=== PATIENT | female | born 1985 | race Caucasian/White ===

== ENCOUNTER 2021-12-20 14:09 | Emergency (ER) | payer MEDICAID ==
[~2021-12-20] VITALS: Ht 170.2 cm; Wt 100.0 kg
[2021-12-20 14:19] VITALS: BP 128/82
[2021-12-20] MEDS ORDERED: CEPH500C2 MT (16:33)
[2021-12-20] MEDS ORDERED: TRIA15CR61 TP (16:33)
[2021-12-20] MEDS ORDERED: LORA10CA MT (16:33)
== END 2021-12-20 16:54 | disposition home or self-care (01) ==
LOC: ER 14:09
DX: S70.361A Insect bite (nonvenomous), right thigh, initial encounter (principal); L03.115 Cellulitis of right lower limb; Z98.890 Other specified postprocedural states; Z97.5 Presence of (intrauterine) contraceptive device; W57.XXXA Bitten or stung by nonvenomous insect and other nonvenomous arthropods, initial encounter; Y93.89 Activity, other specified; Y92.018 Other place in single-family (private) house as the place of occurrence of the external cause
CPT/HCPCS: 99281

== ENCOUNTER 2022-07-26 20:28 | Emergency (ER) | payer MEDICAID ==
[~2022-07-26] VITALS: Ht 170.2 cm; Wt 220.0 kg
[~2022-07-26 20:28] MED LIST: CEPH500C2 MT; LORA10CA MT; TRIA15CR61 TP
[2022-07-26] MEDS ORDERED: CIPR-264 MT (23:22)
[2022-07-27] MEDS ORDERED: KETOROLAC 60MG/2ML VIAL IM ONE
[2022-07-27 00:10] VITALS: BP 137/85
== END 2022-07-27 00:11 | disposition home or self-care (01) ==
LOC: ER 20:28
DX: H61.002 Unspecified perichondritis of left external ear (principal); Z98.890 Other specified postprocedural states
CPT/HCPCS: 81025; 96372; 99283; J1885; Z7610

== ENCOUNTER 2022-12-03 10:01 | Emergency (ER) | payer MEDICAID ==
[~2022-12-03] VITALS: Ht 170.2 cm; Wt 98.2 kg
[~2022-12-03 10:01] MED LIST changes: +CIPR-264 MT
[2022-12-03 10:20] VITALS: O2SAT 98
[2022-12-03] MEDS ORDERED: AMOX1TAB16 MT (11:12)
[2022-12-03] MEDS ORDERED: KETOROLAC 30MG/ML VIAL IM ONE (11:30)
[2022-12-03 11:36] VITALS: BP 145/75; PULSE 101; RESP 18; TEMP 98.7
== END 2022-12-03 11:39 | disposition home or self-care (01) ==
LOC: ER 10:01
DX: K08.89 Other specified disorders of teeth and supporting structures (principal)
CPT/HCPCS: 99283; 96372; J1885